=== PATIENT | male | born 1975 | race Caucasian/White ===

== ENCOUNTER 2018-01-08 16:19 | Emergency (ER) | payer OTHER ==
[2018-01-08 17:02] VITALS: BP 139/91; PULSE 72; RESP 16; TEMP 98.6; O2SAT 100
[2018-01-08] MEDS ORDERED: Amoxicillin-Clav 875-125 mg Tab PO STA (17:16)
[2018-01-08] MEDS ORDERED: Rabies Immune Globulin 150 INTLU/ML VIAL IM ONE (17:17)
[2018-01-08] MEDS ORDERED: RABIES VACCINE 2.5 Units PDR IM ONE (17:17)
--- NOTE | 2018-01-08 17:24 | ED PDOC ---
Lower Extremity Pain/Injury Time Seen by Provider: 01/08/18 17:21 Chief Complaint (Nursing): Bite Chief Complaint (Provider): raccoon bite History Per: Patient (42 y/o male here with left leg animal bite from wild raccoon in [place] 38 hours ago. Denies any fevers/chills/pain in region. Advised by pcp to come to ED for rabies prophylaxis. Believes tetanus up to date.) Past Medical History Reviewed: Historical Data, Nursing Documentation, Vital Signs Vital Signs: Last Vital Signs Temp 98.6 F 01/08/18 16:58 Pulse 72 01/08/18 16:58 Resp 16 01/08/18 16:58 BP 139/91 H 01/08/18 16:58 Pulse Ox 100 01/08/18 16:58 - Family History Family History: States: No Known Family Hx - Home Medications Home Medications: Ambulatory Orders Medication Instructions Recorded Amoxicillin/Clavulanate [Augmentin 1 tab PO BID #9 tab 01/08/18 875 MG-125 MG] - Allergies Allergies/Adverse Reactions: Allergies Allergy/AdvReac Type Severity Reaction Status Date / Time No Known Allergies Allergy Verified 01/08/18 16:58 Review of Systems ROS Statement: Except As Marked, All Systems Reviewed And Found Negative Skin: Positive for: Other (animal bite) Physical Exam - Reviewed Nursing Documentation Reviewed: Yes Vital Signs Reviewed: Yes - Physical Exam Appears: Positive for: Well, Non-toxic, No Acute Distress Head Exam: Positive for: ATRAUMATIC, NORMAL INSPECTION, NORMOCEPHALIC Skin: Positive for: Normal Color (punctate lesions (2) noted along lateral aspect of left ankle.Nosigns of surrounding erythema), Warm Eye Exam: Positive for: EOMI, Normal appearance, PERRL ENT: Positive for: Normal ENT Inspection Neck: Positive for: Normal, Painless ROM Cardiovascular/Chest: Positive for: Regular Rate, Rhythm Respiratory: Positive for: CNT, Normal Breath Sounds Gastrointestinal/Abdominal: Positive for: Normal Exam, Bowel Sounds, Soft Back: Positive for: Normal Inspection Extremity: Positive for: Normal ROM Neurologic/Psych: Positive for: Alert, Oriented - ECG O2 Sat by Pulse Oximetry: 100 - Progress ED Course And Treament: Rabies vaccine 1ml IM x1dose RAbise immunoglobulin 1680 ordered augmentin 875mg x1 dose Disposition - Clinical Impression Clinical Impression: Animal bite wound - Patient ED Disposition Is Patient to be Admitted: No - Disposition Disposition: Routine/Home Disposition Time: 17:30 Condition: FAIR Additional Instructions: f/u with pmd in 2 days for wound evaluation. RETURN TO ED 01/11/2018 FOR SECOND DOSE OF RABIES VACCINE RETURN TO ED 01/15/2018 FOR THIRD DOSE OF RABIES VACCINE RETURN TO ED 01/22/2018 FOR FOURTH DOSE OF RABIES VACCINE Prescriptions: Amoxicillin/Clavulanate [Augmentin 875 MG-125 MG] 1 tab PO BID #9 tab Instructions: Animal Bites (DC) Forms: [employer] (Algerian)
[2018-01-08] MEDS ORDERED: Amoxicillin-Clav 875-125 mg Tab PO ONE (18:33)
== END 2018-01-08 18:52 | disposition home or self-care (01) ==
LOC: H.ER 16:19
DX: Z29.14 Encounter for prophylactic rabies immune globulin (principal)

== ENCOUNTER 2018-01-16 17:07 | Emergency (ER) | payer OTHER ==
[2018-01-16 17:22] VITALS: BP 143/87; PULSE 85; RESP 16; TEMP 98; O2SAT 100
[2018-01-16] MEDS ORDERED: RABIES VACCINE 2.5 Units PDR IM ONE (17:27)
--- NOTE | 2018-01-16 17:52 | ED PDOC ---
HPI: General Adult Time Seen by Provider: 01/16/18 17:22 Chief Complaint (Nursing): Rabies Vaccine Series Chief Complaint (Provider): Rabies Vaccine Series History Per: Patient History/Exam Limitations: no limitations Onset/Duration Of Symptoms: Days (x8) Additional Complaint(s): 42 year old male presents to the ER for rabies vaccine series. Was seen here on 01/08/18 for an animal bite and given 1st dose of rabies vaccine at that time. States he was advised to follow up with his PMD 2 days after, which he did, and come in today for 2nd vaccine. Did not receive a rabies vaccine from his PMD. Offers no complaints at this time. PMD: Camron Cruz MD Past Medical History Reviewed: Historical Data, Nursing Documentation, Vital Signs Vital Signs: Last Vital Signs Temp 98.0 F 01/16/18 17:18 Pulse 85 01/16/18 17:18 Resp 16 01/16/18 17:18 BP 143/87 01/16/18 17:18 Pulse Ox 100 01/16/18 17:18 - Family History Family History: States: Unknown Family Hx - Social History Current smoker - smoking cessation education provided: No Alcohol: Social Drugs: Denies - Home Medications Home Medications: Ambulatory Orders Medication Instructions Recorded Amoxicillin/Clavulanate [Augmentin 1 tab PO BID #9 tab 01/08/18 875 MG-125 MG] - Allergies Allergies/Adverse Reactions: Allergies Allergy/AdvReac Type Severity Reaction Status Date / Time No Known Allergies Allergy Verified 01/08/18 16:58 Review of Systems ROS Statement: Except As Marked, All Systems Reviewed And Found Negative Constitutional: Negative for: Fever, Chills Physical Exam - Reviewed Nursing Documentation Reviewed: Yes Vital Signs Reviewed: Yes - Physical Exam Appears: Positive for: Well, Non-toxic, No Acute Distress Skin: Positive for: Normal Color Respiratory: Negative for: Respiratory Distress Neurologic/Psych: Positive for: Alert, Oriented - ECG O2 Sat by Pulse Oximetry: 100 (RA) Pulse Ox Interpretation: Normal - Progress ED Course And Treament: Patient with discharge papers from initial visit which indicate he was supposed to return on 01/11/18. Advised dates must be adjusted, and he will follow up on for next rabies vaccine. Medical Decision Making Medical Decision Making: Time: 17:27 Plan: * Rabies Vaccine 2.5 units IM Scribe Attestation: Documented by Elizabeth Westfall, acting as a scribe for Raghav Etienne PA-C Provider Scribe Attestation: All medical record entries made by the Scribe were at my direction and personally dictated by me. I have reviewed the chart and agree that the record accurately reflects my personal performance of the history, physical exam, medical decision making, and the department course for this patient. I have also personally directed, reviewed, and agree with the discharge instructions and disposition. Disposition - Clinical Impression Clinical Impression: Rabies, need for prophylactic vaccination against - Patient ED Disposition Is Patient to be Admitted: No Counseled Patient/Family Regarding: Diagnosis, Need For Followup - Disposition Disposition: Routine/Home Disposition Time: 17:51 Condition: STABLE Additional Instructions: RETURN TO ED ON 01/20/2018 FOR 3RD RABIES VACCINATION RETURN TO ED 01/27/2018 FOR 4TH RABIES VACCINATION Instructions: Rabies Vaccine Forms: [employer] (Albanian) Print Language: BELIZEAN - POA Present On Arrival: None
== END 2018-01-16 18:00 | disposition home or self-care (01) ==
LOC: H.ER 17:07
DX: Z29.14 Encounter for prophylactic rabies immune globulin (principal)

== ENCOUNTER 2018-01-20 17:20 | Emergency (ER) | payer OTHER ==
[2018-01-20 17:52] VITALS: BP 132/83; PULSE 72; RESP 18; TEMP 98; O2SAT 98
[2018-01-20] MEDS ORDERED: RABIES VACCINE 2.5 Units PDR IM ONE (18:01)
--- NOTE | 2018-01-20 18:17 | ED PDOC ---
HPI: General Adult Time Seen by Provider: 01/20/18 17:54 Chief Complaint (Nursing): Rabies Vaccine Series Chief Complaint (Provider): rabies vaccine History Per: Patient Additional Complaint(s): Patient presents to ED for 3rd vaccine in rabies series. He denies any reaction to previous vaccines. Patient offers no acute complaints. Past Medical History Reviewed: Historical Data, Nursing Documentation, Vital Signs Vital Signs: Last Vital Signs Temp 98 F 01/20/18 17:49 Pulse 72 01/20/18 17:49 Resp 18 01/20/18 17:49 BP 132/83 01/20/18 17:49 Pulse Ox 98 01/20/18 17:49 - Medical History PMH: No Chronic Diseases - Family History Family History: States: No Known Family Hx - Living Arrangements Living Arrangements: With Family - Social History Current smoker - smoking cessation education provided: No Alcohol: None Drugs: Denies - Immunization History Hx Tetanus Toxoid Vaccination: Yes - Home Medications Home Medications: Ambulatory Orders Medication Instructions Recorded Amoxicillin/Clavulanate [Augmentin 1 tab PO BID #9 tab 01/08/18 875 MG-125 MG] - Allergies Allergies/Adverse Reactions: Allergies Allergy/AdvReac Type Severity Reaction Status Date / Time No Known Allergies Allergy Verified 01/08/18 16:58 Review of Systems ROS Statement: Except As Marked, All Systems Reviewed And Found Negative Constitutional: Positive for: Other (here for rabies vaccine) Physical Exam - Reviewed Nursing Documentation Reviewed: Yes Vital Signs Reviewed: Yes - Physical Exam Appears: Positive for: Well, Non-toxic, No Acute Distress Skin: Negative for: Rash Eye Exam: Positive for: Normal appearance Cardiovascular/Chest: Positive for: Regular Rate, Rhythm Respiratory: Positive for: Normal Breath Sounds Neurologic/Psych: Positive for: Alert, Oriented - ECG O2 Sat by Pulse Oximetry: 98 Pulse Ox Interpretation: Normal Medical Decision Making Medical Decision Makin43 year old here for rabies vaccine Plan: Rabies Vaccine 2.5 units IM Patient was instructed to return on 01/27/18 for last vaccine in series. Disposition - Clinical Impression Clinical Impression: Rabies, need for prophylactic vaccination against - Patient ED Disposition Is Patient to be Admitted: No Counseled Patient/Family Regarding: Diagnosis, Need For Followup - Disposition Referrals: [facility] [Outside] Disposition: Routine/Home Disposition Time: 18:17 Condition: STABLE Additional Instructions: Return on 01/27/18 for last vaccine in series. Instructions: Rabies Vaccine
== END 2018-01-20 19:33 | disposition home or self-care (01) ==
LOC: H.ER 17:20
DX: Z23 Encounter for immunization (principal)

== ENCOUNTER 2018-01-27 16:47 | Emergency (ER) | payer OTHER ==
[2018-01-27 16:57] VITALS: BP 132/86; PULSE 89; RESP 16; TEMP 98.8; O2SAT 99
[2018-01-27] MEDS ORDERED: RABIES VACCINE 2.5 Units PDR IM ONE (17:20)
--- NOTE | 2018-01-27 17:27 | ED PDOC ---
HPI: Wound Care - HPI Time Seen by Provider: 01/27/18 16:59 Chief Complaint (Nursing): Rabies Vaccine Series Chief Complaint (Provider): Rabies Vaccine History Per: Patient Exam Limitations: no limitations Onset/Duration Of Symptoms: Other (3 weeks) Current Symptoms Are (Timing): Still Present Additional Complaint(s): Bethel is a 43 y/o male who presents to the ED for a rabies vaccine after getting bitten by a stray raccoon in [facility] 3 weeks ago. Patient has finished a course of antibiotics already. Patient denies any complications with the bite wounds and offers no additional complaints at this time. PMD: Camron Cruz Past Medical History Reviewed: Historical Data, Nursing Documentation, Vital Signs Vital Signs: Last Vital Signs Temp 98.8 F 01/27/18 16:55 Pulse 89 01/27/18 16:55 Resp 16 01/27/18 16:55 BP 132/86 01/27/18 16:55 Pulse Ox 99 01/27/18 16:55 - Medical History PMH: No Chronic Diseases - Surgical History Surgical History: No Surg Hx - Family History Family History: States: Unknown Family Hx - Social History Current smoker - smoking cessation education provided: Yes (1 pack/week) Alcohol: None Drugs: Denies - Immunization History Hx Tetanus Toxoid Vaccination: Yes - Home Medications Home Medications: Ambulatory Orders Medication Instructions Recorded Amoxicillin/Clavulanate [Augmentin 1 tab PO BID #9 tab 01/08/18 875 MG-125 MG] - Allergies Allergies/Adverse Reactions: Allergies Allergy/AdvReac Type Severity Reaction Status Date / Time No Known Allergies Allergy Verified 01/08/18 16:58 Review of Systems ROS Statement: Except As Marked, All Systems Reviewed And Found Negative Physical Exam - Reviewed Nursing Documentation Reviewed: Yes Vital Signs Reviewed: Yes - Physical Exam Appears: Positive for: Well, Non-toxic, No Acute Distress Head Exam: Positive for: ATRAUMATIC, NORMOCEPHALIC Skin: Positive for: Normal Color, Warm, Dry Eye Exam: Positive for: EOMI, PERRL Neck: Positive for: Supple Cardiovascular/Chest: Positive for: Regular Rate, Rhythm Respiratory: Positive for: Normal Breath Sounds. Negative for: Decreased Breath Sounds, Accessory Muscle Use, Respiratory Distress Extremity: Positive for: Normal ROM, Other (2 healing puncture wounds to posterior right ankle (+) scab (-) erythema (-) warmth (-) evidence of cellulitis (-) tenderness (-) drainage). Negative for: Pedal Edema, Calf Tenderness, Deformity Neurologic/Psych: Positive for: Alert, Oriented - ECG O2 Sat by Pulse Oximetry: 99 (RA) Pulse Ox Interpretation: Normal Medical Decision Making Medical Decision Making: Time: 17:25 Initial Impression: Wound Check, Rabies Vaccine Initial Plan: --Rabies Vaccine Advised to follow up with primary care physician in 1-2 days without fail. Return to the emergency room at any time for any new or worsening symptoms. Patient states he fully agrees with and understands discharge instructions. States that he agrees with the plan and disposition. Verbalized and repeated discharge instructions and plan. I have given the patient opportunity to ask any additional questions. Scribe Attestation: Documented by Brad Rajan, acting as a scribe for Susan Ward PA-C Provider Scribe Attestation: All medical record entries made by the Scribe were at my direction and personally dictated by me. I have reviewed the chart and agree that the record accurately reflects my personal performance of the history, physical exam, medical decision making, and the department course for this patient. I have also personally directed, reviewed, and agree with the discharge instructions and disposition. Disposition - Clinical Impression Clinical Impression: Animal bite of ankle, Rabies, need for prophylactic vaccination against - Patient ED Disposition Is Patient to be Admitted: No Counseled Patient/Family Regarding: Studies Performed, Diagnosis, Need For Followup, Smoking Cessation - Disposition Referrals: [facility] [Outside] Disposition: Routine/Home Disposition Time: 17:25 Condition: STABLE Additional Instructions: Please contact your doctor in 2 days for re-evaluation and follow up / or call one of the physicians/clinics you have been referred to that are listed on the Patient Visit Information form that is included in your discharge packet. Bring any paperwork you were given at discharge with you along with any medications you are taking to your follow up visit. Our treatment cannot replace ongoing medical care by a primary care provider (PCP) outside of the emergency department. Instructions: Animal Bites (DC), Rabies Vaccine Forms: [employer] (Vietnamese) Print Language: ALBANIAN - POA Present On Arrival: None
== END 2018-01-27 20:00 | disposition home or self-care (01) ==
LOC: H.ER 16:47
DX: Z29.14 Encounter for prophylactic rabies immune globulin (principal)